=== PATIENT | male | born 1960 | race Hispanic/Latino ===

== ENCOUNTER 2018-03-09 18:05 | Emergency (ER) | payer OTHER, MEDICARE ==
[~2018-03-09] VITALS: Ht 170.2 cm; Wt 95.3 kg
[~2018-03-09 18:05] MED LIST: FUROSEMIDE20 MG PO; GLUCOPHAGE; METFORMIN HCL1000 MG PO; MINOCYCLINE HC100 MG PO; RAMIPRIL10 MG PO; Z.0.ACTOS15 MG; Z.0.LEVEMIR100 UNIT/ SQ; Z.0.NOVOLOG100 UNIT/ SQ; Z.0.PLAVIX75 MG PO; Z.0.RAMIPRIL10 MG PO; Z.0.ULTRAM 50MG50 MG PO; [UNRECOGNIZED DRUG - OTHER] PO
--- NOTE | 2018-03-09 19:04 | Diagnostic Imaging Report ---
EXAM: KNEE RIGHT THREE VIEWS DATE: 03/09/2018 6:26 PM INDICATION: ^SWELLING ^[id number] ^[id number] swelling COMPARISON: None FINDINGS: BKA changes present. Mild osteophytosis noted. There is no joint effusion. Vascular calcifications present. No ulceration or gas overlying distal soft tissues. IMPRESSION: No definite acute finding. Signed by: Dr. Ryan Arthur MD on 03/09/2018 7:01 PM
[2018-04-15] MEDS ORDERED: IRBESARTAN150 MG PO (10:40)
[2018-04-15] MEDS ORDERED: ATORVASTATIN CA10 MG PO (10:42)
[2018-04-15] MEDS ORDERED: CLOPIDOGREL75 MG PO (10:42)
[2018-04-15] MEDS ORDERED: FARXIGA PO (10:43)
[2018-04-15] MEDS ORDERED: METOPROLOL SUCC25 MG PO (10:44)
[2018-04-15] MEDS ORDERED: XARELTO20 MG PO (10:44)
[2018-04-15] MEDS ORDERED: TRESIBA SC (10:48)
[2018-04-15] MEDS ORDERED: AMLODIPINE BESY10 MG PO (10:49)
== END 2018-03-09 19:42 | disposition home or self-care (01) ==
LOC: ER 18:05
DX: M25.561 Pain in right knee (principal); L03.115 Cellulitis of right lower limb; I10 Essential (primary) hypertension; E11.9 Type 2 diabetes mellitus without complications; I25.10 Atherosclerotic heart disease of native coronary artery without angina pectoris; Z89.511 Acquired absence of right leg below knee
CPT/HCPCS: 99283

== ENCOUNTER 2021-03-30 10:29 | Inpatient (IN) | payer MEDICARE, OTHER ==
[~2021-03-30] VITALS: Ht 170.2 cm; Wt 131.5 kg
[~2021-03-30 10:29] MED LIST changes: +AMLODIPINE BESY10 MG PO; +ATORVASTATIN CA10 MG PO; +CLOPIDOGREL75 MG PO; +FARXIGA PO; +IRBESARTAN150 MG PO; +METOPROLOL SUCC25 MG PO; +TRESIBA SC; +XARELTO20 MG PO
[2021-03-30] MEDS ORDERED: Vancomycin IV 1 GM in SODIUM CHLORIDE 0.9% 250ML 250 ML IV ONE (11:00)
[2021-03-30] MEDS ORDERED: CEFEPIME 2 GM in SODIUM CHLORIDE 0.9% 100 ML IV ONE (11:00)
[2021-03-30] MEDS ORDERED: SODIUM CHLORIDE 0.9% 500ML 500 ML IV ONE (11:00)
[2021-03-30 11:03] LABS: BASOPHILS # (AUTO) 0.1 (0.0-0.1); BASOPHILS % 0.3 % (0.0-1.0); EOSINOPHILS # (AUTO) 0.1 (0.0-0.4); EOSINOPHILS % 0.7 % (0.0-6.0); HEMATOCRIT 43.7 % (38.2-49.6); HEMOGLOBIN 14.5 g/dL (14.0-18.0); LYMPHOCYTES # (AUTO) 1.2 (1.0-3.2); LYMPHOCYTES % 7.1 % (18.0-39.1); MEAN CORPUSCULAR HEMOGLOBIN 30.2 pg (28-32); MEAN CORPUSCULAR HGB CONC 33.2 g/dL (31-35); MONOCYTES # (AUTO) 1.3 (0.2-0.8); MONOCYTES % 7.6 % (4.4-11.3); NEUTROPHILS # (AUTO) 14.6 (2.1-6.9); NEUTROPHILS % 83.8 % (38.7-80.0); PLATELET COUNT 219 x10e3/uL (140-360); RED CELL DISTRIBUTION WIDTH 13.3 % (11.7-14.4)
[2021-03-30 11:09] LABS: INR 1.01; PROTHROMBIN TIME 14.1 seconds (11.9-14.5)
[2021-03-30 11:10] LABS: PARTIAL THROMBOPLASTIN TIME 33.6 seconds (23.8-35.5)
[2021-03-30 11:17] LABS: ALBUMIN 3.3 g/dL (3.5-5.0); ALBUMIN/GLOBULIN RATIO 0.7 (0.8-2.0); ANION GAP 14.1 mmol/L (8-16); CALCIUM 9.3 mg/dL (8.4-10.2); CREATININE, SERUM 1.25 mg/dL (0.72-1.25); MAGNESIUM 1.5 MG/DL (1.3-2.1); POTASSIUM 4.1 mmol/L (3.5-5.1)
[2021-03-30 11:23] LABS: CREATINE KINASE MB 0.9 ng/mL (0-5.0)
[2021-03-30 11:26] LABS: B-TYPE NATRIURETIC PEPTIDE2 26.5 pg/mL (0-100)
[2021-03-30 12:39] LABS: CLARITY,URINE CLEAR (CLEAR); COLOR,URINE YELLOW (YELLOW); KETONES,URINE NEGATIVE (NEGATIVE); LEUKOCYTE ESTERASE ,URINE NEGATIVE (NEGATIVE); NITRITE,URINE NEGATIVE (NEGATIVE); PROTEIN,URINE DIPSTICK 2+ (NEGATIVE); URINE UROBILINOGEN 0.2 mg/dL (0.2 - 1)
[2021-03-30 12:48] LABS: BACTERIA,URINE FEW /HPF; EPITHELIAL CELLS,URINE FEW /LPF; RBC,URINE 0-5 /HPF (0-5); WBC,URINE (MAN) 0-5 /HPF (0-5)
[2021-03-30] MEDS ORDERED: ONDANSETRON HCL INJ 2MG/ML 2ML 2 MG/ML VIAL IV PRN (14:00)
[2021-03-30] MEDS ORDERED: Morphine 2mg Syringe 2 MG/ML SYR IV PRN (14:00)
[2021-03-30] MEDS ORDERED: ACETAMINOPHEN 325 MG TAB PO PRN (14:30)
[2021-03-30] MEDS: SODIUM CHLORIDE 0.9% 1000ML 1,000 ML IV SCH (14:36)
[2021-03-30 15:56] VITALS: BP 115/63
[2021-03-30 15:57] VITALS: BP 115/63
[2021-03-30 16:07] VITALS: BP 115/63
[2021-03-30] MEDS ORDERED: OZEMPIC0.25 MG/0. SC (16:23)
[2021-03-30 16:35] VITALS: BP 115/63
[2021-03-30] MEDS ORDERED: DEXTROSE 50% SYRINGE 50 ML IV PRN (16:45)
[2021-03-30] MEDS: INSULIN REGULAR, HUMAN 100 UNIT/1 ML SQ SCH ×2 (17:00→20:28)
[2021-03-30] MEDS ORDERED: MAGNESIUM SULFATE 2GM/50ML 50 ML IV ONE (17:00)
[2021-03-30] MEDS ORDERED: HYDRALAZINE HCL 20 MG/ML VIAL IV PRN (18:15)
[2021-03-30] MEDS ORDERED: TEMAZEPAM 7.5 MG CAP PO PRN (18:15)
[2021-03-30] MEDS ORDERED: POLYETHYLENE GLYCOL 3350 17 GM PACK PO PRN (18:15)
[2021-03-30] MEDS ORDERED: FAMOTIDINE 20 MG/2 ML VIAL IV SCH (18:45)
[2021-03-30] MEDS ORDERED: TEMAZEPAM 15 MG CAP PO PRN (18:45)
[2021-03-30] MEDS: Vancomycin IV 500 MG in SODIUM CHLORIDE 0.9% 100 ML IV SCH (19:58)
[2021-03-30 20:00] VITALS: BP_SYST 115; BP_SYST 146; BP_DIAS 63; BP_DIAS 65
[2021-03-30] MEDS: ATORVASTATIN 10 MG TAB PO SCH (20:09)
[2021-03-30] MEDS: INSULIN GLARGINE 100 UNITS/ML VIAL SQ SCH (20:28)
[2021-03-30] MEDS: CEFEPIME 1 GM in SODIUM CHLORIDE 0.9% 50ML 50 ML IV SCH (22:04)
[2021-03-31] VITALS: BP 135/76
[2021-03-31] MEDS: SODIUM CHLORIDE 0.9% 1000ML 1,000 ML IV SCH (04:48)
[2021-03-31 07:20] LABS: BASOPHILS # (AUTO) 0.1 (0.0-0.1); BASOPHILS % 0.3 % (0.0-1.0); EOSINOPHILS # (AUTO) 0.1 (0.0-0.4); EOSINOPHILS % 0.7 % (0.0-6.0); HEMATOCRIT 36.8 % (38.2-49.6); HEMOGLOBIN 12.5 g/dL (14.0-18.0); LYMPHOCYTES # (AUTO) 1.3 (1.0-3.2); MEAN CORPUSCULAR HEMOGLOBIN 30.3 pg (28-32); MEAN CORPUSCULAR VOLUME 89.1 fL (81-99); MONOCYTES # (AUTO) 1.6 (0.2-0.8); NEUTROPHILS # (AUTO) 14.8 (2.1-6.9); NEUTROPHILS % 82.1 % (38.7-80.0); PLATELET COUNT 192 x10e3/uL (140-360); RED BLOOD COUNT 4.13 x10e6/uL (4.3-5.7); RED CELL DISTRIBUTION WIDTH 13.2 % (11.7-14.4)
[2021-03-31] MEDS: INSULIN REGULAR, HUMAN 100 UNIT/1 ML SQ SCH ×4 (07:30→21:26)
[2021-03-31 07:41] LABS: ALBUMIN 2.6 g/dL (3.5-5.0); ALBUMIN/GLOBULIN RATIO 0.6 (0.8-2.0); ANION GAP 13.7 mmol/L (8-16); CALCIUM 8.3 mg/dL (8.4-10.2); CHOL/HDL RATIO 3.6 (3.9-4.7); CREATININE, SERUM 0.98 mg/dL (0.72-1.25); MAGNESIUM 1.9 MG/DL (1.3-2.1); PHOSPHORUS 2.3 MG/DL (2.3-4.7); POTASSIUM 3.7 mmol/L (3.5-5.1)
[2021-03-31] MEDS: Vancomycin IV 500 MG in SODIUM CHLORIDE 0.9% 100 ML IV SCH (08:00)
[2021-03-31 08:04] LABS: THYROID STIMULATING HORMONE 1.659 uIU/mL (0.350-4.940)
[2021-03-31 08:12] VITALS: BP 160/79
[2021-03-31] MEDS: FAMOTIDINE 20 MG TAB PO SCH ×2 (08:30→17:03)
[2021-03-31] MEDS ORDERED: NON-FORMULARY MEDICATION ([Farxiga] 10 MG) PO SCH (09:00)
[2021-03-31] MEDS: CEFEPIME 1 GM in SODIUM CHLORIDE 0.9% 50ML 50 ML IV SCH ×2 (09:00→21:24)
[2021-03-31] MEDS ORDERED: FUROSEMIDE 40 MG TAB PO SCH (09:00)
[2021-03-31] MEDS: IRBESARTAN 150 MG TAB PO SCH (09:41)
[2021-03-31] MEDS: DOCUSATE SODIUM 100 MG CAP PO SCH ×2 (09:42→17:03)
[2021-03-31] MEDS: FOLIC ACID/CYANOCOB/PYRIDOXINE TAB PO SCH (09:43)
[2021-03-31] MEDS: AMLODIPINE BESYLATE 10 MG TAB PO SCH (09:43)
[2021-03-31] MEDS: OYST-CAL-D 500MG TABLET PO SCH (09:44)
[2021-03-31] MEDS: ZINC SULFATE 220 MG CAP PO SCH (09:45)
[2021-03-31] MEDS: ASCORBIC ACID 500 MG TAB PO SCH (09:45)
[2021-03-31] MEDS: METOPROLOL SUCCINATE 50 MG TAB XL PO SCH (09:45)
[2021-03-31] MEDS: Vancomycin IV 1.5 GM in SODIUM CHLORIDE 0.9% 250ML 300 ML IV SCH (17:41)
[2021-03-31 20:00] VITALS: BP 104/70
[2021-03-31] MEDS ORDERED: SODIUM CHLORIDE 0.9% 250ML 250 ML ONE (21:23)
[2021-03-31] MEDS: ATORVASTATIN 10 MG TAB PO SCH (21:24)
[2021-03-31] MEDS: INSULIN GLARGINE 100 UNITS/ML VIAL SQ SCH (21:26)
[2021-03-31 21:47] VITALS: BP 104/70
[2021-03-31] MEDS: ACETAMINOPHEN 325 MG TAB PO PRN (22:11)
[2021-04-01] VITALS (8 sets, daily range): BP systolic 106–128; BP diastolic 43–69
[2021-04-01 05:07] LABS: BASOPHILS # (AUTO) 0.1 (0.0-0.1); BASOPHILS % 0.3 % (0.0-1.0); EOSINOPHILS # (AUTO) 0.3 (0.0-0.4); EOSINOPHILS % 1.7 % (0.0-6.0); HEMATOCRIT 34.9 % (38.2-49.6); HEMOGLOBIN 11.9 g/dL (14.0-18.0); LYMPHOCYTES # (AUTO) 1.4 (1.0-3.2); LYMPHOCYTES % 7.7 % (18.0-39.1); MEAN CORPUSCULAR HEMOGLOBIN 30.2 pg (28-32); MEAN CORPUSCULAR HGB CONC 34.1 g/dL (31-35); MEAN CORPUSCULAR VOLUME 88.6 fL (81-99); MONOCYTES # (AUTO) 1.8 (0.2-0.8); MONOCYTES % 9.7 % (4.4-11.3); NEUTROPHILS # (AUTO) 14.7 (2.1-6.9); NEUTROPHILS % 79.8 % (38.7-80.0); PLATELET COUNT 205 x10e3/uL (140-360); RED BLOOD COUNT 3.94 x10e6/uL (4.3-5.7); RED CELL DISTRIBUTION WIDTH 13.2 % (11.7-14.4)
[2021-04-01] MEDS: Vancomycin IV 1.5 GM in SODIUM CHLORIDE 0.9% 250ML 300 ML IV SCH (05:11)
[2021-04-01] MEDS: ACETAMINOPHEN 325 MG TAB PO PRN ×2 (05:12→20:20)
[2021-04-01 05:35] LABS: ANION GAP 14.2 mmol/L (8-16); CALCIUM 8.5 mg/dL (8.4-10.2); CREATININE, SERUM 1.27 mg/dL (0.72-1.25); POTASSIUM 3.2 mmol/L (3.5-5.1)
[2021-04-01] MEDS: FAMOTIDINE 20 MG TAB PO SCH ×2 (08:30→16:34)
[2021-04-01] MEDS: IRBESARTAN 150 MG TAB PO SCH (09:00)
[2021-04-01] MEDS: AMLODIPINE BESYLATE 10 MG TAB PO SCH (09:00)
[2021-04-01] MEDS: METOPROLOL SUCCINATE 50 MG TAB XL PO SCH (09:00)
[2021-04-01] MEDS: DOCUSATE SODIUM 100 MG CAP PO SCH ×2 (09:42→16:31)
[2021-04-01] MEDS: FOLIC ACID/CYANOCOB/PYRIDOXINE TAB PO SCH (09:43)
[2021-04-01] MEDS: OYST-CAL-D 500MG TABLET PO SCH (09:43)
[2021-04-01] MEDS: BACITRACIN ZINC 15 GM OINT TOP SCH (09:44)
[2021-04-01] MEDS: ZINC SULFATE 220 MG CAP PO SCH (09:44)
[2021-04-01] MEDS: ASCORBIC ACID 500 MG TAB PO SCH (09:44)
[2021-04-01] MEDS ORDERED: DEXTROSE 50% SYRINGE 50 ML IV PRN (09:45)
[2021-04-01] MEDS ORDERED: PIPERACILLIN/TAZOBACTAM 3.375 GM in SODIUM CHLORIDE 0.9% 50ML 50 ML IV SCH (10:20)
[2021-04-01] MEDS ORDERED: POTASSIUM CHLORIDE 10MEQ EA PO ONE (10:25)
[2021-04-01] MEDS ORDERED: ONDANSETRON HCL 4 MG ORAL DISINTEGRATING TAB PO PRN (10:45)
[2021-04-01] MEDS: INSULIN LISPRO 100 UNIT/1 ML 3ML VIAL SQ SCH ×5 (11:30→20:17)
[2021-04-01] MEDS: ENOXAPARIN SOD INJ 40 MG/0.4 ML SYR SC SCH (16:31)
[2021-04-01] MEDS: ATORVASTATIN 10 MG TAB PO SCH (20:16)
[2021-04-01] MEDS: INSULIN GLARGINE 100 UNITS/ML VIAL SQ SCH (20:17)
[2021-04-02] VITALS (8 sets, daily range): BP systolic 107–140; BP diastolic 42–64
[2021-04-02] MEDS: ACETAMINOPHEN 325 MG TAB PO PRN (04:59)
[2021-04-02 05:36] LABS: BASOPHILS % 0.2 % (0.0-1.0); EOSINOPHILS # (AUTO) 0.5 (0.0-0.4); EOSINOPHILS % 2.9 % (0.0-6.0); HEMATOCRIT 35.9 % (38.2-49.6); HEMOGLOBIN 11.6 g/dL (14.0-18.0); LYMPHOCYTES # (AUTO) 1.5 (1.0-3.2); LYMPHOCYTES % 8.9 % (18.0-39.1); MEAN CORPUSCULAR HEMOGLOBIN 29.3 pg (28-32); MEAN CORPUSCULAR HGB CONC 32.3 g/dL (31-35); MEAN CORPUSCULAR VOLUME 90.7 fL (81-99); MONOCYTES # (AUTO) 1.3 (0.2-0.8); MONOCYTES % 7.6 % (4.4-11.3); NEUTROPHILS # (AUTO) 13.6 (2.1-6.9); NEUTROPHILS % 79.8 % (38.7-80.0); PLATELET COUNT 225 x10e3/uL (140-360); RED BLOOD COUNT 3.96 x10e6/uL (4.3-5.7); RED CELL DISTRIBUTION WIDTH 13.2 % (11.7-14.4)
[2021-04-02 05:56] LABS: ANION GAP 13.3 mmol/L (8-16); CALCIUM 8.2 mg/dL (8.4-10.2); CREATININE, SERUM 1.15 mg/dL (0.72-1.25); POTASSIUM 3.3 mmol/L (3.5-5.1)
[2021-04-02] MEDS: INSULIN LISPRO 100 UNIT/1 ML 3ML VIAL SQ SCH ×7 (07:30→20:26)
[2021-04-02] MEDS: FAMOTIDINE 20 MG TAB PO SCH ×2 (08:00→16:30)
[2021-04-02] MEDS: CEFTRIAXONE 2 GM in SODIUM CHLORIDE 0.9% 100 ML IV SCH (09:00)
[2021-04-02] MEDS: ZINC SULFATE 220 MG CAP PO SCH (09:01)
[2021-04-02] MEDS: BACITRACIN ZINC 15 GM OINT TOP SCH (09:01)
[2021-04-02] MEDS: IRBESARTAN 150 MG TAB PO SCH (09:01)
[2021-04-02] MEDS: FOLIC ACID/CYANOCOB/PYRIDOXINE TAB PO SCH (09:01)
[2021-04-02] MEDS: METOPROLOL SUCCINATE 50 MG TAB XL PO SCH (09:01)
[2021-04-02] MEDS: AMLODIPINE BESYLATE 10 MG TAB PO SCH (09:01)
[2021-04-02] MEDS: OYST-CAL-D 500MG TABLET PO SCH (09:01)
[2021-04-02] MEDS: DOCUSATE SODIUM 100 MG CAP PO SCH ×2 (09:01→17:27)
[2021-04-02] MEDS: ASCORBIC ACID 500 MG TAB PO SCH (09:01)
[2021-04-02] MEDS: ENOXAPARIN SOD INJ 40 MG/0.4 ML SYR SC SCH (17:27)
[2021-04-02] MEDS: ATORVASTATIN 10 MG TAB PO SCH (20:26)
[2021-04-02] MEDS: INSULIN GLARGINE 100 UNITS/ML VIAL SQ SCH (20:27)
[2021-04-03] VITALS (7 sets, daily range): BP systolic 115–137; BP diastolic 52–69
[2021-04-03] MEDS: INSULIN LISPRO 100 UNIT/1 ML 3ML VIAL SQ SCH ×7 (08:00→21:00)
[2021-04-03] MEDS: FAMOTIDINE 20 MG TAB PO SCH ×2 (08:00→16:30)
[2021-04-03] MEDS: AMLODIPINE BESYLATE 10 MG TAB PO SCH (09:03)
[2021-04-03] MEDS: CEFTRIAXONE 2 GM in SODIUM CHLORIDE 0.9% 100 ML IV SCH (09:03)
[2021-04-03] MEDS: IRBESARTAN 150 MG TAB PO SCH (09:03)
[2021-04-03] MEDS: FOLIC ACID/CYANOCOB/PYRIDOXINE TAB PO SCH (09:03)
[2021-04-03] MEDS: DOCUSATE SODIUM 100 MG CAP PO SCH ×2 (09:03→17:35)
[2021-04-03] MEDS: OYST-CAL-D 500MG TABLET PO SCH (09:03)
[2021-04-03] MEDS: ASCORBIC ACID 500 MG TAB PO SCH (09:04)
[2021-04-03] MEDS: ZINC SULFATE 220 MG CAP PO SCH (09:04)
[2021-04-03] MEDS: METOPROLOL SUCCINATE 50 MG TAB XL PO SCH (09:04)
[2021-04-03] MEDS: BACITRACIN ZINC 15 GM OINT TOP SCH (09:05)
[2021-04-03] MEDS: ENOXAPARIN SOD INJ 40 MG/0.4 ML SYR SC SCH (16:45)
[2021-04-03] MEDS: ATORVASTATIN 10 MG TAB PO SCH (20:16)
[2021-04-03] MEDS: ACETAMINOPHEN 325 MG TAB PO PRN (21:00)
[2021-04-03] MEDS: INSULIN GLARGINE 100 UNITS/ML VIAL SQ SCH (21:00)
[2021-04-04] VITALS (10 sets, daily range): BP systolic 112–143; BP diastolic 47–87
[2021-04-04] MEDS: FAMOTIDINE 20 MG TAB PO SCH ×2 (07:30→17:08)
[2021-04-04] MEDS: INSULIN LISPRO 100 UNIT/1 ML 3ML VIAL SQ SCH ×7 (07:30→21:37)
[2021-04-04] MEDS: BACITRACIN ZINC 15 GM OINT TOP SCH (09:00)
[2021-04-04] MEDS ORDERED: HEPARIN SOD (PORCINE) 1000 UNIT/ML 30ML ONE (09:01)
[2021-04-04] MEDS ORDERED: LIDOCAINE HCL 2% LOCAL 20 ML VIAL ONE (09:02)
[2021-04-04] MEDS ORDERED: HEPARIN SOD/SOD CHLORIDE 2,000 ML ONE (09:02)
[2021-04-04] MEDS ORDERED: MIDAZOLAM HCL 2 MG/2 ML VIAL ONE ×2 (09:02→10:19)
[2021-04-04] MEDS ORDERED: FENTANYL CITRATE/PF 100MCG/2 ML INJ ONE (09:02)
[2021-04-04] MEDS ORDERED: IOPAMIDOL 300MG/ML 100 ML INFUS..BTL IV ONE (09:03)
[2021-04-04] MEDS ORDERED: SODIUM CHLORIDE 0.9% 1000ML 1,000 ML ONE (09:03)
[2021-04-04] MEDS ORDERED: NITROGLYCERIN/D5W 200 MCG/ML 250 ML ONE (09:03)
[2021-04-04] MEDS ORDERED: CLOPIDOGREL BISULFATE 75 MG TAB ONE (10:43)
[2021-04-04] MEDS ORDERED: ASPIRIN 325 MG TAB ONE (10:44)
[2021-04-04] MEDS: ASCORBIC ACID 500 MG TAB PO SCH (12:49)
[2021-04-04] MEDS: DOCUSATE SODIUM 100 MG CAP PO SCH ×2 (12:49→17:08)
[2021-04-04] MEDS: ZINC SULFATE 220 MG CAP PO SCH (12:49)
[2021-04-04] MEDS: IRBESARTAN 150 MG TAB PO SCH (12:49)
[2021-04-04] MEDS: METOPROLOL SUCCINATE 50 MG TAB XL PO SCH (12:49)
[2021-04-04] MEDS: CEFTRIAXONE 2 GM in SODIUM CHLORIDE 0.9% 100 ML IV SCH (12:49)
[2021-04-04] MEDS: OYST-CAL-D 500MG TABLET PO SCH (12:49)
[2021-04-04] MEDS: AMLODIPINE BESYLATE 10 MG TAB PO SCH (12:49)
[2021-04-04] MEDS: FOLIC ACID/CYANOCOB/PYRIDOXINE TAB PO SCH (12:49)
[2021-04-04] MEDS: ENOXAPARIN SOD INJ 40 MG/0.4 ML SYR SC SCH (17:08)
[2021-04-04] MEDS: INSULIN GLARGINE 100 UNITS/ML VIAL SQ SCH (21:38)
[2021-04-04] MEDS: ATORVASTATIN 10 MG TAB PO SCH (21:39)
[2021-04-05 04:00] VITALS: BP 131/57
[2021-04-05] MEDS: FAMOTIDINE 20 MG TAB PO SCH ×2 (07:30→17:30)
[2021-04-05] MEDS: INSULIN LISPRO 100 UNIT/1 ML 3ML VIAL SQ SCH ×7 (07:30→20:57)
[2021-04-05 08:15] VITALS: BP 136/73
[2021-04-05 08:23] LABS: BASOPHILS # (AUTO) 0.1 (0.0-0.1); BASOPHILS % 0.5 % (0.0-1.0); EOSINOPHILS # (AUTO) 0.6 (0.0-0.4); EOSINOPHILS % 4.5 % (0.0-6.0); HEMOGLOBIN 11.9 g/dL (14.0-18.0); LYMPHOCYTES # (AUTO) 1.5 (1.0-3.2); LYMPHOCYTES % 11.4 % (18.0-39.1); MEAN CORPUSCULAR HEMOGLOBIN 29.4 pg (28-32); MEAN CORPUSCULAR HGB CONC 32.2 g/dL (31-35); MEAN CORPUSCULAR VOLUME 91.4 fL (81-99); MONOCYTES % 7.7 % (4.4-11.3); NEUTROPHILS # (AUTO) 9.9 (2.1-6.9); NEUTROPHILS % 74.5 % (38.7-80.0); PLATELET COUNT 290 x10e3/uL (140-360); RED BLOOD COUNT 4.05 x10e6/uL (4.3-5.7); RED CELL DISTRIBUTION WIDTH 13.2 % (11.7-14.4)
[2021-04-05 08:41] VITALS: BP 136/73
[2021-04-05] MEDS: IRBESARTAN 150 MG TAB PO SCH (09:09)
[2021-04-05] MEDS: ASPIRIN 81 MG CHEW TAB PO SCH (09:09)
[2021-04-05] MEDS: CEFTRIAXONE 2 GM in SODIUM CHLORIDE 0.9% 100 ML IV SCH (09:09)
[2021-04-05] MEDS: OYST-CAL-D 500MG TABLET PO SCH (09:10)
[2021-04-05] MEDS: AMLODIPINE BESYLATE 10 MG TAB PO SCH (09:10)
[2021-04-05] MEDS: DOCUSATE SODIUM 100 MG CAP PO SCH ×2 (09:10→17:37)
[2021-04-05] MEDS: FOLIC ACID/CYANOCOB/PYRIDOXINE TAB PO SCH (09:10)
[2021-04-05] MEDS: CLOPIDOGREL BISULFATE 75 MG TAB PO SCH (09:11)
[2021-04-05] MEDS: METOPROLOL SUCCINATE 50 MG TAB XL PO SCH (09:11)
[2021-04-05] MEDS: ASCORBIC ACID 500 MG TAB PO SCH (09:12)
[2021-04-05] MEDS: ZINC SULFATE 220 MG CAP PO SCH (09:12)
[2021-04-05] MEDS: BACITRACIN ZINC 15 GM OINT TOP SCH (09:12)
[2021-04-05 12:31] VITALS: BP 113/71
[2021-04-05 16:30] VITALS: BP 127/53
[2021-04-05] MEDS: ENOXAPARIN SOD INJ 40 MG/0.4 ML SYR SC SCH (17:37)
[2021-04-05 20:00] VITALS: BP 139/63
[2021-04-05] MEDS: INSULIN GLARGINE 100 UNITS/ML VIAL SQ SCH (20:56)
[2021-04-05] MEDS: ATORVASTATIN 10 MG TAB PO SCH (20:57)
[2021-04-06] VITALS: BP 130/70
[2021-04-06 04:00] VITALS: BP 145/63
[2021-04-06] MEDS: INSULIN LISPRO 100 UNIT/1 ML 3ML VIAL SQ SCH ×7 (07:30→21:44)
[2021-04-06 07:37] LABS: BASOPHILS # (AUTO) 0.1 (0.0-0.1); BASOPHILS % 0.5 % (0.0-1.0); EOSINOPHILS # (AUTO) 0.5 (0.0-0.4); EOSINOPHILS % 3.7 % (0.0-6.0); HEMATOCRIT 34.2 % (38.2-49.6); HEMOGLOBIN 11.1 g/dL (14.0-18.0); LYMPHOCYTES # (AUTO) 1.5 (1.0-3.2); LYMPHOCYTES % 12.1 % (18.0-39.1); MEAN CORPUSCULAR HEMOGLOBIN 29.6 pg (28-32); MEAN CORPUSCULAR HGB CONC 32.5 g/dL (31-35); MEAN CORPUSCULAR VOLUME 91.2 fL (81-99); MONOCYTES # (AUTO) 0.9 (0.2-0.8); MONOCYTES % 7.3 % (4.4-11.3); NEUTROPHILS # (AUTO) 9.4 (2.1-6.9); PLATELET COUNT 287 x10e3/uL (140-360); RED BLOOD COUNT 3.75 x10e6/uL (4.3-5.7); RED CELL DISTRIBUTION WIDTH 13.2 % (11.7-14.4)
[2021-04-06 07:56] LABS: ANION GAP 13.7 mmol/L (8-16); CALCIUM 8.9 mg/dL (8.4-10.2); CREATININE, SERUM 0.73 mg/dL (0.72-1.25); POTASSIUM 3.7 mmol/L (3.5-5.1)
[2021-04-06 08:00] VITALS: BP 139/68
[2021-04-06] MEDS: FAMOTIDINE 20 MG TAB PO SCH ×2 (08:30→17:09)
[2021-04-06] MEDS: ASPIRIN 81 MG CHEW TAB PO SCH (08:34)
[2021-04-06] MEDS: CEFTRIAXONE 2 GM in SODIUM CHLORIDE 0.9% 100 ML IV SCH (08:34)
[2021-04-06] MEDS: OYST-CAL-D 500MG TABLET PO SCH (08:36)
[2021-04-06] MEDS: IRBESARTAN 150 MG TAB PO SCH (08:36)
[2021-04-06] MEDS: ZINC SULFATE 220 MG CAP PO SCH (08:36)
[2021-04-06] MEDS: ASCORBIC ACID 500 MG TAB PO SCH (08:36)
[2021-04-06] MEDS: FOLIC ACID/CYANOCOB/PYRIDOXINE TAB PO SCH (08:36)
[2021-04-06] MEDS: BACITRACIN ZINC 15 GM OINT TOP SCH (08:36)
[2021-04-06] MEDS: METOPROLOL SUCCINATE 50 MG TAB XL PO SCH (08:36)
[2021-04-06] MEDS: CLOPIDOGREL BISULFATE 75 MG TAB PO SCH (08:36)
[2021-04-06] MEDS: DOCUSATE SODIUM 100 MG CAP PO SCH ×2 (08:36→17:09)
[2021-04-06] MEDS: AMLODIPINE BESYLATE 10 MG TAB PO SCH (08:36)
[2021-04-06 12:00] VITALS: BP 132/64
[2021-04-06 16:00] VITALS: BP 130/66
[2021-04-06] MEDS: ENOXAPARIN SOD INJ 40 MG/0.4 ML SYR SC SCH (17:09)
[2021-04-06 20:00] VITALS: BP 139/70
[2021-04-06] MEDS: ATORVASTATIN 10 MG TAB PO SCH (21:30)
[2021-04-06] MEDS: INSULIN GLARGINE 100 UNITS/ML VIAL SQ SCH (21:45)
[2021-04-07] VITALS: BP 133/61
[2021-04-07 04:00] VITALS: BP 133/58
[2021-04-07] MEDS: INSULIN LISPRO 100 UNIT/1 ML 3ML VIAL SQ SCH ×4 (07:30→11:30)
[2021-04-07] MEDS: FAMOTIDINE 20 MG TAB PO SCH (07:30)
[2021-04-07 08:07] VITALS: BP 149/66
[2021-04-07 08:10] VITALS: BP 149/66
[2021-04-07] MEDS: DOCUSATE SODIUM 100 MG CAP PO SCH (09:29)
[2021-04-07] MEDS: CEFTRIAXONE 2 GM in SODIUM CHLORIDE 0.9% 100 ML IV SCH (09:29)
[2021-04-07] MEDS: CLOPIDOGREL BISULFATE 75 MG TAB PO SCH (09:29)
[2021-04-07] MEDS: AMLODIPINE BESYLATE 10 MG TAB PO SCH (09:29)
[2021-04-07] MEDS: ASPIRIN 81 MG CHEW TAB PO SCH (09:29)
[2021-04-07] MEDS: FOLIC ACID/CYANOCOB/PYRIDOXINE TAB PO SCH (09:29)
[2021-04-07] MEDS: OYST-CAL-D 500MG TABLET PO SCH (09:29)
[2021-04-07] MEDS: IRBESARTAN 150 MG TAB PO SCH (09:29)
[2021-04-07] MEDS: ZINC SULFATE 220 MG CAP PO SCH (09:30)
[2021-04-07] MEDS: BACITRACIN ZINC 15 GM OINT TOP SCH (09:30)
[2021-04-07] MEDS: METOPROLOL SUCCINATE 50 MG TAB XL PO SCH (09:30)
[2021-04-07] MEDS: ASCORBIC ACID 500 MG TAB PO SCH (09:30)
[2021-04-07 11:34] VITALS: BP 130/69
== END 2021-04-07 16:00 | disposition home or self-care (01) | DRG 253 ==
LOC: ER 10:49 → MED/SURG3 15:26
PROVIDERS: ADMIT Internal Medicine; ATTEND Internal Medicine
PROC: 0JBR0ZZ Excision of Left Foot Subcutaneous Tissue and Fascia, Open Approach (ICD-10-PCS; 2021-04-01)
PROC: 047Q3ZZ Dilation of Left Anterior Tibial Artery, Percutaneous Approach (ICD-10-PCS; principal; 2021-04-04)
PROC: B41D1ZZ Fluoroscopy of Aorta and Bilateral Lower Extremity Arteries using Low Osmolar Contrast (ICD-10-PCS; 2021-04-04)
DX: E11.51 Type 2 diabetes mellitus with diabetic peripheral angiopathy without gangrene (principal); L03.116 Cellulitis of left lower limb; N17.9 Acute kidney failure, unspecified; E11.621 Type 2 diabetes mellitus with foot ulcer; L98.9 Disorder of the skin and subcutaneous tissue, unspecified; L97.529 Non-pressure chronic ulcer of other part of left foot with unspecified severity; Z79.899 Other long term (current) drug therapy; E78.5 Hyperlipidemia, unspecified; I25.10 Atherosclerotic heart disease of native coronary artery without angina pectoris; E83.42 Hypomagnesemia; E88.09 Other disorders of plasma-protein metabolism, not elsewhere classified; Z89.511 Acquired absence of right leg below knee; E11.42 Type 2 diabetes mellitus with diabetic polyneuropathy; Z20.822 Contact with and (suspected) exposure to COVID-19; I70.25 Atherosclerosis of native arteries of other extremities with ulceration; I87.2 Venous insufficiency (chronic) (peripheral)
CPT/HCPCS: 36247; 36415; 37228; 71045; 75625; 75716; 80048; 80053; 80061; 80202; 81001; 82550; 82553; 82948; 83036; 83605; 83735; 83880; 84100; 84443; 84484; 85025; 85610; 85730; 87040; 87071; 87075; 87205; 93005; 93925; 94799; 99152; 99153; 99251; 99284; C1725; C1769; C1887; J0692; J0696; J1644; J1650; J1815; J1817; J2001; J2250; J2543; J3010; J3370; J3475; J7030; J7040; J7050; Q9967; U0002

== ENCOUNTER 2021-04-21 12:12 | Inpatient (IN) | payer MEDICARE, OTHER ==
[~2021-04-21] VITALS: Ht 170.2 cm; Wt 104.3 kg
[~2021-04-21 12:12] MED LIST changes: +OZEMPIC0.25 MG/0. SC
[2021-04-21] MEDS ORDERED: ONDANSETRON HCL INJ 2MG/ML 2ML 2 MG/ML VIAL IV PRN (12:30)
[2021-04-21] MEDS ORDERED: HYDROMORPHONE 1MG/1ML INJ IV PRN (12:30)
[2021-04-21] MEDS ORDERED: BUPIVACAINE 0.25% 30ML SDV ONE (12:42)
[2021-04-21] MEDS ORDERED: DEXAMETHASONE SOD PHOS 10 MG/1 ML VIAL IV ONE (13:00)
[2021-04-21 13:06] LABS: BASOPHILS # (AUTO) 0.1 (0.0-0.1); BASOPHILS % 0.4 % (0.0-1.0); EOSINOPHILS # (AUTO) 0.5 (0.0-0.4); EOSINOPHILS % 4.8 % (0.0-6.0); HEMATOCRIT 36.7 % (38.2-49.6); HEMOGLOBIN 12.1 g/dL (14.0-18.0); LYMPHOCYTES # (AUTO) 1.5 (1.0-3.2); LYMPHOCYTES % 13.7 % (18.0-39.1); MEAN CORPUSCULAR HEMOGLOBIN 29.4 pg (28-32); MEAN CORPUSCULAR VOLUME 89.3 fL (81-99); MONOCYTES # (AUTO) 0.7 (0.2-0.8); MONOCYTES % 6.6 % (4.4-11.3); NEUTROPHILS # (AUTO) 8.2 (2.1-6.9); NEUTROPHILS % 73.8 % (38.7-80.0); PLATELET COUNT 271 x10e3/uL (140-360); RED BLOOD COUNT 4.11 x10e6/uL (4.3-5.7); RED CELL DISTRIBUTION WIDTH 13.6 % (11.7-14.4)
[2021-04-21 13:36] LABS: ALBUMIN 2.5 g/dL (3.5-5.0); ALBUMIN/GLOBULIN RATIO 0.5 (0.8-2.0); CALCIUM 8.6 mg/dL (8.4-10.2); CREATININE, SERUM 0.9 mg/dL (0.72-1.25)
[2021-04-21] MEDS ORDERED: METFORMIN HCL PO (14:09)
[2021-04-21] MEDS ORDERED: SODIUM CHLORIDE FLUSH 10 ML SYR INJ PRN (14:15)
[2021-04-21] MEDS: PIPERACILLIN/TAZOBACTAM 3.375 GM in SODIUM CHLORIDE 0.9% 50ML 50 ML IV SCH ×3 (16:00→22:00)
[2021-04-21] MEDS ORDERED: DEXTROSE 50% SYRINGE 50 ML IV PRN (17:15)
[2021-04-21 18:31] VITALS: BP 143/67
[2021-04-21 18:52] VITALS: BP 143/67
[2021-04-21] MEDS ORDERED: PNEUMOCOCCAL VACCINE POLYVALENT 23 MCG/0.5 ML VIAL IM SCH (18:53)
[2021-04-21 20:00] VITALS: BP 132/72
[2021-04-21] MEDS: INSULIN LISPRO 100 UNIT/1 ML 3ML VIAL SQ SCH (21:00)
[2021-04-21] MEDS ORDERED: CEFEPIME 1 GM in SODIUM CHLORIDE 0.9% 50ML 50 ML IV SCH (21:00)
[2021-04-21] MEDS ORDERED: Vancomycin IV 1 GM in SODIUM CHLORIDE 0.9% 250ML 250 ML IV SCH (22:00)
[2021-04-21] MEDS ORDERED: SODIUM CHLORIDE 0.9% 250ML 250 ML ONE (23:44)
[2021-04-22] VITALS (8 sets, daily range): BP systolic 137–160; BP diastolic 66–79
[2021-04-22 05:18] LABS: BASOPHILS % 0.2 % (0.0-1.0); HEMATOCRIT 36.8 % (38.2-49.6); HEMOGLOBIN 11.8 g/dL (14.0-18.0); LYMPHOCYTES # (AUTO) 0.9 (1.0-3.2); LYMPHOCYTES % 6.5 % (18.0-39.1); MEAN CORPUSCULAR HEMOGLOBIN 29.3 pg (28-32); MEAN CORPUSCULAR HGB CONC 32.1 g/dL (31-35); MEAN CORPUSCULAR VOLUME 91.3 fL (81-99); MONOCYTES # (AUTO) 0.3 (0.2-0.8); MONOCYTES % 1.9 % (4.4-11.3); NEUTROPHILS # (AUTO) 12.7 (2.1-6.9); NEUTROPHILS % 90.9 % (38.7-80.0); PLATELET COUNT 279 x10e3/uL (140-360); RED BLOOD COUNT 4.03 x10e6/uL (4.3-5.7); RED CELL DISTRIBUTION WIDTH 13.5 % (11.7-14.4)
[2021-04-22 05:48] LABS: ANION GAP 13.1 mmol/L (8-16); CALCIUM 9.4 mg/dL (8.4-10.2); CREATININE, SERUM 1.05 mg/dL (0.72-1.25); POTASSIUM 4.1 mmol/L (3.5-5.1)
[2021-04-22] MEDS: PIPERACILLIN/TAZOBACTAM 3.375 GM in SODIUM CHLORIDE 0.9% 50ML 50 ML IV SCH (06:21)
[2021-04-22] MEDS ORDERED: FAMOTIDINE 20 MG TAB PO ONE (09:00)
[2021-04-22] MEDS: INSULIN LISPRO 100 UNIT/1 ML 3ML VIAL SQ SCH ×4 (09:15→21:30)
[2021-04-22] MEDS: Vancomycin IV 1 GM in SODIUM CHLORIDE 0.9% 250ML 250 ML IV SCH ×3 (12:08)
[2021-04-22] MEDS ORDERED: ONDANSETRON HCL 4 MG ORAL DISINTEGRATING TAB PO PRN (17:45)
[2021-04-22] MEDS: ATORVASTATIN 10 MG TAB PO SCH (21:00)
[2021-04-23] VITALS (8 sets, daily range): BP systolic 121–161; BP diastolic 69–81
[2021-04-23 06:22] LABS: BASOPHILS # (AUTO) 0.1 (0.0-0.1); BASOPHILS % 0.6 % (0.0-1.0); EOSINOPHILS # (AUTO) 0.3 (0.0-0.4); EOSINOPHILS % 2.5 % (0.0-6.0); HEMOGLOBIN 11.2 g/dL (14.0-18.0); LYMPHOCYTES % 19.9 % (18.0-39.1); MEAN CORPUSCULAR HEMOGLOBIN 29.2 pg (28-32); MEAN CORPUSCULAR HGB CONC 32.9 g/dL (31-35); MEAN CORPUSCULAR VOLUME 88.8 fL (81-99); MONOCYTES # (AUTO) 0.7 (0.2-0.8); MONOCYTES % 7.2 % (4.4-11.3); NEUTROPHILS # (AUTO) 7.1 (2.1-6.9); NEUTROPHILS % 69.2 % (38.7-80.0); PLATELET COUNT 275 x10e3/uL (140-360); RED BLOOD COUNT 3.83 x10e6/uL (4.3-5.7); RED CELL DISTRIBUTION WIDTH 13.8 % (11.7-14.4)
[2021-04-23 06:54] LABS: ANION GAP 9.7 mmol/L (8-16); CALCIUM 9.1 mg/dL (8.4-10.2); CREATININE, SERUM 0.91 mg/dL (0.72-1.25); MAGNESIUM 1.6 MG/DL (1.3-2.1); PHOSPHORUS 2.6 MG/DL (2.3-4.7); POTASSIUM 3.7 mmol/L (3.5-5.1)
[2021-04-23] MEDS: INSULIN LISPRO 100 UNIT/1 ML 3ML VIAL SQ SCH ×4 (07:30→19:39)
[2021-04-23] MEDS: METOPROLOL SUCCINATE 50 MG TAB XL PO SCH (09:00)
[2021-04-23] MEDS: AMLODIPINE BESYLATE 10 MG TAB PO SCH (09:00)
[2021-04-23] MEDS: IRBESARTAN 150 MG TAB PO SCH (09:00)
[2021-04-23] MEDS: CLOPIDOGREL BISULFATE 75 MG TAB PO SCH (09:00)
[2021-04-23] MEDS: FUROSEMIDE 40 MG TAB PO SCH (09:00)
[2021-04-23] MEDS: ENOXAPARIN SODIUM INJ 100 MG/ML SYR SC SCH (15:00)
[2021-04-23] MEDS: DOCUSATE SODIUM 100 MG CAP PO SCH (18:14)
[2021-04-23] MEDS: ATORVASTATIN 10 MG TAB PO SCH (19:39)
[2021-04-24] VITALS (11 sets, daily range): BP systolic 110–132; BP diastolic 62–74
[2021-04-24] MEDS: ENOXAPARIN SODIUM INJ 100 MG/ML SYR SC SCH ×2 (02:48→15:00)
[2021-04-24] MEDS: INSULIN LISPRO 100 UNIT/1 ML 3ML VIAL SQ SCH ×4 (07:30→21:54)
[2021-04-24 08:20] LABS: BASOPHILS # (AUTO) 0.1 (0.0-0.1); BASOPHILS % 0.9 % (0.0-1.0); EOSINOPHILS # (AUTO) 0.5 (0.0-0.4); HEMATOCRIT 36.8 % (38.2-49.6); HEMOGLOBIN 11.7 g/dL (14.0-18.0); LYMPHOCYTES # (AUTO) 1.9 (1.0-3.2); LYMPHOCYTES % 21.6 % (18.0-39.1); MEAN CORPUSCULAR HEMOGLOBIN 29.1 pg (28-32); MEAN CORPUSCULAR HGB CONC 31.8 g/dL (31-35); MEAN CORPUSCULAR VOLUME 91.5 fL (81-99); MONOCYTES # (AUTO) 0.7 (0.2-0.8); MONOCYTES % 7.4 % (4.4-11.3); NEUTROPHILS # (AUTO) 5.6 (2.1-6.9); NEUTROPHILS % 63.4 % (38.7-80.0); PLATELET COUNT 258 x10e3/uL (140-360); RED BLOOD COUNT 4.02 x10e6/uL (4.3-5.7); RED CELL DISTRIBUTION WIDTH 13.9 % (11.7-14.4)
[2021-04-24 08:51] LABS: ANION GAP 11.8 mmol/L (8-16); CALCIUM 9.3 mg/dL (8.4-10.2); CREATININE, SERUM 0.83 mg/dL (0.72-1.25); MAGNESIUM 1.6 MG/DL (1.3-2.1); POTASSIUM 3.8 mmol/L (3.5-5.1)
[2021-04-24] MEDS: CLOPIDOGREL BISULFATE 75 MG TAB PO SCH (09:00)
[2021-04-24] MEDS: METOPROLOL SUCCINATE 50 MG TAB XL PO SCH (09:00)
[2021-04-24] MEDS ORDERED: PNEUMOCOCCAL VACCINE POLYVALENT 23 MCG/0.5 ML VIAL IM SCH (09:00)
[2021-04-24] MEDS: AMLODIPINE BESYLATE 10 MG TAB PO SCH (09:00)
[2021-04-24] MEDS: FUROSEMIDE 40 MG TAB PO SCH (09:00)
[2021-04-24] MEDS: IRBESARTAN 150 MG TAB PO SCH (09:00)
[2021-04-24] MEDS: DOCUSATE SODIUM 100 MG CAP PO SCH ×2 (09:00→16:43)
[2021-04-24 09:05] LABS: PHOSPHORUS 2.9 MG/DL (2.3-4.7)
[2021-04-24] MEDS ORDERED: HEPARIN SOD/SOD CHLORIDE 2,000 ML ONE (09:26)
[2021-04-24] MEDS ORDERED: MIDAZOLAM HCL 2 MG/2 ML VIAL ONE (09:26)
[2021-04-24] MEDS ORDERED: FENTANYL CITRATE/PF 100MCG/2 ML INJ ONE (09:26)
[2021-04-24] MEDS ORDERED: LIDOCAINE HCL 2% LOCAL 20 ML VIAL ONE (09:26)
[2021-04-24] MEDS ORDERED: IOPAMIDOL 300MG/ML 100 ML INFUS..BTL IV ONE (09:27)
[2021-04-24] MEDS ORDERED: SODIUM CHLORIDE 0.9% 1000ML 1,000 ML ONE (09:27)
[2021-04-24] MEDS ORDERED: SODIUM CHLORIDE 0.9% 100 ML ONE (14:47)
[2021-04-24] MEDS: POLYETHYLENE GLYCOL 3350 17 GM PACK PO SCH (16:43)
[2021-04-24] MEDS: ATORVASTATIN 10 MG TAB PO SCH (21:52)
[2021-04-25] VITALS (9 sets, daily range): BP systolic 106–145; BP diastolic 61–73
[2021-04-25] MEDS: ENOXAPARIN SODIUM INJ 100 MG/ML SYR SC SCH ×2 (03:00→15:21)
[2021-04-25 04:52] LABS: BASOPHILS # (AUTO) 0.1 (0.0-0.1); BASOPHILS % 0.8 % (0.0-1.0); EOSINOPHILS # (AUTO) 0.5 (0.0-0.4); EOSINOPHILS % 5.8 % (0.0-6.0); HEMATOCRIT 39.3 % (38.2-49.6); HEMOGLOBIN 12.2 g/dL (14.0-18.0); LYMPHOCYTES # (AUTO) 1.8 (1.0-3.2); MEAN CORPUSCULAR HEMOGLOBIN 29.5 pg (28-32); MEAN CORPUSCULAR VOLUME 94.9 fL (81-99); MONOCYTES # (AUTO) 0.9 (0.2-0.8); MONOCYTES % 9.7 % (4.4-11.3); NEUTROPHILS # (AUTO) 5.6 (2.1-6.9); NEUTROPHILS % 62.9 % (38.7-80.0); PLATELET COUNT 226 x10e3/uL (140-360); RED BLOOD COUNT 4.14 x10e6/uL (4.3-5.7); RED CELL DISTRIBUTION WIDTH 13.9 % (11.7-14.4)
[2021-04-25 05:40] LABS: ANION GAP 11.6 mmol/L (8-16); CALCIUM 9.4 mg/dL (8.4-10.2); CREATININE, SERUM 0.89 mg/dL (0.72-1.25); MAGNESIUM 1.7 MG/DL (1.3-2.1); POTASSIUM 3.6 mmol/L (3.5-5.1)
[2021-04-25] MEDS: POLYETHYLENE GLYCOL 3350 17 GM PACK PO SCH ×2 (09:00→17:00)
[2021-04-25] MEDS: DOCUSATE SODIUM 100 MG CAP PO SCH ×2 (09:00→17:00)
[2021-04-25] MEDS: INSULIN LISPRO 100 UNIT/1 ML 3ML VIAL SQ SCH ×4 (10:00→21:00)
[2021-04-25] MEDS: IRBESARTAN 150 MG TAB PO SCH (10:00)
[2021-04-25] MEDS: AMLODIPINE BESYLATE 10 MG TAB PO SCH (10:01)
[2021-04-25] MEDS: METOPROLOL SUCCINATE 50 MG TAB XL PO SCH (10:01)
[2021-04-25] MEDS: CLOPIDOGREL BISULFATE 75 MG TAB PO SCH (10:01)
[2021-04-25] MEDS: FUROSEMIDE 40 MG TAB PO SCH (10:01)
[2021-04-25] MEDS: ATORVASTATIN 10 MG TAB PO SCH (21:17)
[2021-04-26] VITALS (8 sets, daily range): BP systolic 113–133; BP diastolic 56–73
[2021-04-26] MEDS: ENOXAPARIN SODIUM INJ 100 MG/ML SYR SC SCH (03:09)
[2021-04-26 04:57] LABS: BASOPHILS # (AUTO) 0.1 (0.0-0.1); BASOPHILS % 0.6 % (0.0-1.0); EOSINOPHILS # (AUTO) 0.8 (0.0-0.4); EOSINOPHILS % 7.8 % (0.0-6.0); HEMATOCRIT 35.6 % (38.2-49.6); HEMOGLOBIN 11.7 g/dL (14.0-18.0); LYMPHOCYTES # (AUTO) 2.1 (1.0-3.2); LYMPHOCYTES % 21.3 % (18.0-39.1); MEAN CORPUSCULAR HEMOGLOBIN 29.5 pg (28-32); MEAN CORPUSCULAR HGB CONC 32.9 g/dL (31-35); MEAN CORPUSCULAR VOLUME 89.7 fL (81-99); MONOCYTES # (AUTO) 0.9 (0.2-0.8); NEUTROPHILS # (AUTO) 5.9 (2.1-6.9); NEUTROPHILS % 60.5 % (38.7-80.0); PLATELET COUNT 228 x10e3/uL (140-360); RED BLOOD COUNT 3.97 x10e6/uL (4.3-5.7); RED CELL DISTRIBUTION WIDTH 13.9 % (11.7-14.4)
[2021-04-26 05:15] LABS: ALBUMIN 2.6 g/dL (3.5-5.0); ALBUMIN/GLOBULIN RATIO 0.6 (0.8-2.0); CALCIUM 12.2 mg/dL (8.4-10.2); CREATININE, SERUM 1.01 mg/dL (0.72-1.25)
[2021-04-26] MEDS: INSULIN LISPRO 100 UNIT/1 ML 3ML VIAL SQ SCH ×4 (07:30→21:05)
[2021-04-26] MEDS: FUROSEMIDE 40 MG TAB PO SCH (08:15)
[2021-04-26] MEDS: IRBESARTAN 150 MG TAB PO SCH (08:15)
[2021-04-26] MEDS: DOCUSATE SODIUM 100 MG CAP PO SCH ×2 (08:15→16:34)
[2021-04-26] MEDS: AMLODIPINE BESYLATE 10 MG TAB PO SCH (08:16)
[2021-04-26] MEDS: METOPROLOL SUCCINATE 50 MG TAB XL PO SCH (08:16)
[2021-04-26] MEDS: POLYETHYLENE GLYCOL 3350 17 GM PACK PO SCH ×2 (08:16→16:34)
[2021-04-26] MEDS: CLOPIDOGREL BISULFATE 75 MG TAB PO SCH (08:16)
[2021-04-26] MEDS: ATORVASTATIN 10 MG TAB PO SCH (20:58)
[2021-04-27] VITALS (7 sets, daily range): BP systolic 126–144; BP diastolic 64–78
[2021-04-27 05:55] LABS: BASOPHILS # (AUTO) 0.1 (0.0-0.1); BASOPHILS % 0.7 % (0.0-1.0); EOSINOPHILS # (AUTO) 0.8 (0.0-0.4); EOSINOPHILS % 8.6 % (0.0-6.0); HEMATOCRIT 33.5 % (38.2-49.6); LYMPHOCYTES # (AUTO) 1.9 (1.0-3.2); LYMPHOCYTES % 21.8 % (18.0-39.1); MEAN CORPUSCULAR HEMOGLOBIN 29.5 pg (28-32); MEAN CORPUSCULAR HGB CONC 32.8 g/dL (31-35); MEAN CORPUSCULAR VOLUME 89.8 fL (81-99); MONOCYTES # (AUTO) 0.8 (0.2-0.8); MONOCYTES % 9.5 % (4.4-11.3); NEUTROPHILS # (AUTO) 5.2 (2.1-6.9); NEUTROPHILS % 58.6 % (38.7-80.0); PLATELET COUNT 220 x10e3/uL (140-360); RED BLOOD COUNT 3.73 x10e6/uL (4.3-5.7); RED CELL DISTRIBUTION WIDTH 13.8 % (11.7-14.4)
[2021-04-27 06:28] LABS: ALBUMIN 2.7 g/dL (3.5-5.0); ALBUMIN/GLOBULIN RATIO 0.6 (0.8-2.0); ANION GAP 10.6 mmol/L (8-16); CALCIUM 8.9 mg/dL (8.4-10.2); CREATININE, SERUM 0.84 mg/dL (0.72-1.25); POTASSIUM 3.6 mmol/L (3.5-5.1)
[2021-04-27] MEDS: INSULIN LISPRO 100 UNIT/1 ML 3ML VIAL SQ SCH ×4 (07:30→21:00)
[2021-04-27] MEDS: DOCUSATE SODIUM 100 MG CAP PO SCH ×2 (07:48→17:00)
[2021-04-27] MEDS: POLYETHYLENE GLYCOL 3350 17 GM PACK PO SCH ×2 (07:48→17:00)
[2021-04-27] MEDS ORDERED: ENOXAPARIN SOD INJ 40 MG/0.4 ML SYR SC SCH (09:00)
[2021-04-27] MEDS: IRBESARTAN 150 MG TAB PO SCH (09:36)
[2021-04-27] MEDS: AMLODIPINE BESYLATE 10 MG TAB PO SCH (09:36)
[2021-04-27] MEDS: FUROSEMIDE 40 MG TAB PO SCH (09:36)
[2021-04-27] MEDS: METOPROLOL SUCCINATE 50 MG TAB XL PO SCH (09:37)
[2021-04-27] MEDS: ATORVASTATIN 10 MG TAB PO SCH (21:48)
[2021-04-27] MEDS ORDERED: CALCIUM CARBONATE 500 MG CHEWABLE TABS PO ONE (22:15)
[2021-04-27] MEDS ORDERED: FAMOTIDINE 20 MG TAB PO ONE (22:15)
[2021-04-28] VITALS (9 sets, daily range): BP systolic 130–152; BP diastolic 57–74
[2021-04-28 05:22] LABS: ANION GAP 11.6 mmol/L (8-16); CALCIUM 9.1 mg/dL (8.4-10.2); CREATININE, SERUM 0.8 mg/dL (0.72-1.25); POTASSIUM 3.6 mmol/L (3.5-5.1)
[2021-04-28 05:25] LABS: BASOPHILS # (AUTO) 0.1 (0.0-0.1); BASOPHILS % 0.7 % (0.0-1.0); EOSINOPHILS # (AUTO) 0.8 (0.0-0.4); EOSINOPHILS % 7.5 % (0.0-6.0); HEMATOCRIT 34.4 % (38.2-49.6); LYMPHOCYTES # (AUTO) 2.1 (1.0-3.2); LYMPHOCYTES % 19.9 % (18.0-39.1); MEAN CORPUSCULAR HEMOGLOBIN 29.3 pg (28-32); MEAN CORPUSCULAR VOLUME 91.7 fL (81-99); MONOCYTES % 9.2 % (4.4-11.3); NEUTROPHILS # (AUTO) 6.4 (2.1-6.9); NEUTROPHILS % 62.1 % (38.7-80.0); PLATELET COUNT 222 x10e3/uL (140-360); RED BLOOD COUNT 3.75 x10e6/uL (4.3-5.7); RED CELL DISTRIBUTION WIDTH 14.1 % (11.7-14.4)
[2021-04-28] MEDS: INSULIN LISPRO 100 UNIT/1 ML 3ML VIAL SQ SCH ×4 (07:30→21:24)
[2021-04-28] MEDS: POLYETHYLENE GLYCOL 3350 17 GM PACK PO SCH ×2 (09:00→16:10)
[2021-04-28] MEDS ORDERED: BUPIVACAINE LIPOSOME/PF 266 MG/20 ML IJ ONE (10:12)
[2021-04-28] MEDS ORDERED: BUPIVACAINE 0.25% 30ML SDV ONE (10:12)
[2021-04-28] MEDS ORDERED: ACETAMINOPHEN 1000 MG/100 ML 100 ML IV ONE (12:00)
[2021-04-28] MEDS ORDERED: POVIDONE IODINE 0.05% 0.05 % ML PO ONE (12:27)
[2021-04-28] MEDS ORDERED: PROPOFOL IV EMULSION 10 MG/ML 20 ML VIAL ONE (12:27)
[2021-04-28] MEDS ORDERED: DEXAMETHASONE SOD PHOS INJ 4 MG/ML SDV ONE (12:27)
[2021-04-28] MEDS ORDERED: SEVOFLURANE INHAL SOLN 250 ML PEN BTL ONE (12:27)
[2021-04-28] MEDS ORDERED: ONDANSETRON HCL INJ 2MG/ML 2ML 2 MG/ML VIAL ONE (12:27)
[2021-04-28] MEDS ORDERED: LIDOCAINE HCL 2% LOCAL INJ 5 ML SDV VIAL INJ ONE (12:27)
[2021-04-28] MEDS ORDERED: FENTANYL CITRATE/PF 100MCG/2 ML INJ ONE (12:45)
[2021-04-28] MEDS ORDERED: MIDAZOLAM HCL 2 MG/2 ML VIAL ONE (12:45)
[2021-04-28] MEDS ORDERED: NALOXONE HCL INJ 0.4 MG/ML AMP IV PRN (13:15)
[2021-04-28] MEDS ORDERED: HYDROCODONE/APAP 7.5MG-325MG 1 EA TAB PO PRN (13:15)
[2021-04-28] MEDS ORDERED: KETOROLAC TROMETHAMINE 30 MG/ML VIAL IV PRN (13:15)
[2021-04-28] MEDS: HYDROMORPHONE 0.2MG/ML-SOD CHL 30ML PCA SYRINGE IV PRN ×2 (13:21→21:45)
[2021-04-28] MEDS ORDERED: HYDROMORPHONE 1MG/1ML INJ ONE ×2 (13:31→13:44)
[2021-04-28] MEDS ORDERED: Morphine 4mg Syringe 4 MG/ML INJ ONE (13:58)
[2021-04-28] MEDS ORDERED: SODIUM CHLORIDE 0.9% 50ML 100 ML ONE (14:00)
[2021-04-28] MEDS: AMLODIPINE BESYLATE 10 MG TAB PO SCH (14:31)
[2021-04-28] MEDS: FUROSEMIDE 40 MG TAB PO SCH (14:31)
[2021-04-28] MEDS: DOCUSATE SODIUM 100 MG CAP PO SCH ×2 (14:31→16:09)
[2021-04-28] MEDS: IRBESARTAN 150 MG TAB PO SCH (14:31)
[2021-04-28] MEDS: METOPROLOL SUCCINATE 50 MG TAB XL PO SCH (14:31)
[2021-04-28] MEDS: SODIUM CHLORIDE 0.9% 1000ML 1,000 ML IV SCH (15:24)
[2021-04-28] MEDS: ATORVASTATIN 10 MG TAB PO SCH (21:21)
[2021-04-29] MEDS: SODIUM CHLORIDE 0.9% 1000ML 1,000 ML IV SCH ×2 (03:09→16:15)
[2021-04-29 04:32] VITALS: BP 152/66
[2021-04-29 06:08] LABS: BASOPHILS % 0.2 % (0.0-1.0); EOSINOPHILS % 0.2 % (0.0-6.0); LYMPHOCYTES # (AUTO) 1.1 (1.0-3.2); LYMPHOCYTES % 9.6 % (18.0-39.1); MEAN CORPUSCULAR HEMOGLOBIN 29.2 pg (28-32); MEAN CORPUSCULAR HGB CONC 31.3 g/dL (31-35); MEAN CORPUSCULAR VOLUME 93.3 fL (81-99); MONOCYTES # (AUTO) 0.8 (0.2-0.8); MONOCYTES % 7.3 % (4.4-11.3); NEUTROPHILS # (AUTO) 9.3 (2.1-6.9); NEUTROPHILS % 82.2 % (38.7-80.0); PLATELET COUNT 238 x10e3/uL (140-360); RED BLOOD COUNT 3.43 x10e6/uL (4.3-5.7); RED CELL DISTRIBUTION WIDTH 14.2 % (11.7-14.4)
[2021-04-29 06:51] LABS: ANION GAP 7.2 mmol/L (8-16); CALCIUM 8.5 mg/dL (8.4-10.2); CREATININE, SERUM 0.91 mg/dL (0.72-1.25); POTASSIUM 4.2 mmol/L (3.5-5.1)
[2021-04-29 07:11] LABS: MAGNESIUM 1.7 MG/DL (1.3-2.1); PHOSPHORUS 2.8 MG/DL (2.3-4.7)
[2021-04-29 07:41] VITALS: BP 117/55
[2021-04-29 08:11] VITALS: BP 117/55
[2021-04-29] MEDS: DOCUSATE SODIUM 100 MG CAP PO SCH ×2 (08:51→16:15)
[2021-04-29] MEDS: IRBESARTAN 150 MG TAB PO SCH (08:51)
[2021-04-29] MEDS: POLYETHYLENE GLYCOL 3350 17 GM PACK PO SCH ×2 (08:52→16:15)
[2021-04-29] MEDS: METOPROLOL SUCCINATE 50 MG TAB XL PO SCH (08:52)
[2021-04-29] MEDS: FUROSEMIDE 40 MG TAB PO SCH (08:52)
[2021-04-29] MEDS: AMLODIPINE BESYLATE 10 MG TAB PO SCH (08:52)
[2021-04-29] MEDS: INSULIN LISPRO 100 UNIT/1 ML 3ML VIAL SQ SCH ×4 (09:25→21:23)
[2021-04-29] MEDS: HYDROMORPHONE 0.2MG/ML-SOD CHL 30ML PCA SYRINGE IV PRN ×2 (10:55→23:25)
[2021-04-29 11:26] VITALS: BP 109/61
[2021-04-29 15:26] VITALS: BP 107/46
[2021-04-29 20:00] VITALS: BP 109/65
[2021-04-29] MEDS: ATORVASTATIN 10 MG TAB PO SCH (21:23)
[2021-04-30] VITALS (8 sets, daily range): BP systolic 108–125; BP diastolic 56–73
[2021-04-30] MEDS: SODIUM CHLORIDE 0.9% 1000ML 1,000 ML IV SCH ×2 (05:51→20:30)
[2021-04-30] MEDS: INSULIN LISPRO 100 UNIT/1 ML 3ML VIAL SQ SCH ×4 (07:30→20:30)
[2021-04-30] MEDS: POLYETHYLENE GLYCOL 3350 17 GM PACK PO SCH ×2 (09:36→16:22)
[2021-04-30] MEDS: FUROSEMIDE 40 MG TAB PO SCH (09:36)
[2021-04-30] MEDS: DOCUSATE SODIUM 100 MG CAP PO SCH ×2 (09:36→16:22)
[2021-04-30] MEDS: AMLODIPINE BESYLATE 10 MG TAB PO SCH (09:37)
[2021-04-30] MEDS: IRBESARTAN 150 MG TAB PO SCH (09:37)
[2021-04-30] MEDS: METOPROLOL SUCCINATE 50 MG TAB XL PO SCH (09:37)
[2021-04-30] MEDS: ATORVASTATIN 10 MG TAB PO SCH (20:30)
[2021-05-01] VITALS (8 sets, daily range): BP systolic 106–142; BP diastolic 45–83
[2021-05-01] MEDS: HYDROMORPHONE 0.2MG/ML-SOD CHL 30ML PCA SYRINGE IV PRN ×2 (01:07→17:02)
[2021-05-01] MEDS: INSULIN LISPRO 100 UNIT/1 ML 3ML VIAL SQ SCH ×4 (07:30→21:10)
[2021-05-01] MEDS: AMLODIPINE BESYLATE 10 MG TAB PO SCH (08:39)
[2021-05-01] MEDS: FUROSEMIDE 40 MG TAB PO SCH (08:39)
[2021-05-01] MEDS: METOPROLOL SUCCINATE 50 MG TAB XL PO SCH (08:39)
[2021-05-01] MEDS: SODIUM CHLORIDE 0.9% 1000ML 1,000 ML IV SCH (08:39)
[2021-05-01] MEDS: POLYETHYLENE GLYCOL 3350 17 GM PACK PO SCH ×2 (08:39→16:50)
[2021-05-01] MEDS: DOCUSATE SODIUM 100 MG CAP PO SCH ×2 (08:39→16:50)
[2021-05-01] MEDS: IRBESARTAN 150 MG TAB PO SCH (08:39)
[2021-05-01] MEDS ORDERED: HYDROMORPHONE 0.2MG/ML-SOD CHL 30ML PCA SYRINGE IV PRN (19:30)
[2021-05-01] MEDS ORDERED: MAGNESIUM HYDROXIDE 30 ML UDC PO ONE (20:00)
[2021-05-01] MEDS: ATORVASTATIN 10 MG TAB PO SCH (20:51)
[2021-05-02] VITALS (8 sets, daily range): BP systolic 125–153; BP diastolic 66–73
[2021-05-02 06:32] LABS: BASOPHILS % 0.3 % (0.0-1.0); EOSINOPHILS # (AUTO) 0.8 (0.0-0.4); EOSINOPHILS % 8.5 % (0.0-6.0); HEMATOCRIT 28.7 % (38.2-49.6); HEMOGLOBIN 9.1 g/dL (14.0-18.0); LYMPHOCYTES # (AUTO) 1.6 (1.0-3.2); LYMPHOCYTES % 16.7 % (18.0-39.1); MEAN CORPUSCULAR HEMOGLOBIN 29.2 pg (28-32); MEAN CORPUSCULAR HGB CONC 31.7 g/dL (31-35); MONOCYTES # (AUTO) 0.7 (0.2-0.8); MONOCYTES % 7.2 % (4.4-11.3); NEUTROPHILS # (AUTO) 6.3 (2.1-6.9); NEUTROPHILS % 66.8 % (38.7-80.0); PLATELET COUNT 230 x10e3/uL (140-360); RED BLOOD COUNT 3.12 x10e6/uL (4.3-5.7); RED CELL DISTRIBUTION WIDTH 14.5 % (11.7-14.4)
[2021-05-02 07:16] LABS: ANION GAP 6.7 mmol/L (8-16); CALCIUM 8.8 mg/dL (8.4-10.2); CREATININE, SERUM 0.76 mg/dL (0.72-1.25); POTASSIUM 3.7 mmol/L (3.5-5.1)
[2021-05-02] MEDS: POLYETHYLENE GLYCOL 3350 17 GM PACK PO SCH ×2 (08:15→16:41)
[2021-05-02] MEDS: DOCUSATE SODIUM 100 MG CAP PO SCH ×2 (08:15→16:41)
[2021-05-02] MEDS: FUROSEMIDE 40 MG TAB PO SCH (08:15)
[2021-05-02] MEDS: METOPROLOL SUCCINATE 50 MG TAB XL PO SCH (08:20)
[2021-05-02] MEDS: IRBESARTAN 150 MG TAB PO SCH (08:20)
[2021-05-02] MEDS: AMLODIPINE BESYLATE 10 MG TAB PO SCH (08:20)
[2021-05-02] MEDS: INSULIN LISPRO 100 UNIT/1 ML 3ML VIAL SQ SCH ×4 (08:22→20:45)
[2021-05-02] MEDS ORDERED: PNEUMOCOCCAL VACCINE POLYVALENT 23 MCG/0.5 ML VIAL IM ONE (13:00)
[2021-05-02] MEDS: FAMOTIDINE 20 MG TAB PO SCH (16:41)
[2021-05-02] MEDS: ATORVASTATIN 10 MG TAB PO SCH (20:40)
[2021-05-03] VITALS (7 sets, daily range): BP systolic 144–158; BP diastolic 55–79
[2021-05-03] MEDS: FAMOTIDINE 20 MG TAB PO SCH ×2 (07:30→16:30)
[2021-05-03] MEDS: INSULIN LISPRO 100 UNIT/1 ML 3ML VIAL SQ SCH ×4 (07:30→21:39)
[2021-05-03] MEDS: FUROSEMIDE 40 MG TAB PO SCH (09:00)
[2021-05-03] MEDS: IRBESARTAN 150 MG TAB PO SCH (09:00)
[2021-05-03] MEDS: DOCUSATE SODIUM 100 MG CAP PO SCH ×2 (09:00→16:33)
[2021-05-03] MEDS: POLYETHYLENE GLYCOL 3350 17 GM PACK PO SCH ×2 (09:00→16:34)
[2021-05-03] MEDS: METOPROLOL SUCCINATE 50 MG TAB XL PO SCH (09:00)
[2021-05-03] MEDS: AMLODIPINE BESYLATE 10 MG TAB PO SCH (09:00)
[2021-05-03] MEDS: ATORVASTATIN 10 MG TAB PO SCH (21:38)
[2021-05-04 00:22] VITALS: BP 144/55
[2021-05-04 06:43] VITALS: BP 154/56
[2021-05-04] MEDS: FAMOTIDINE 20 MG TAB PO SCH ×2 (07:30→16:30)
[2021-05-04] MEDS: INSULIN LISPRO 100 UNIT/1 ML 3ML VIAL SQ SCH ×4 (07:30→21:00)
[2021-05-04 07:52] VITALS: BP 148/73
[2021-05-04] MEDS: IRBESARTAN 150 MG TAB PO SCH (09:00)
[2021-05-04] MEDS: AMLODIPINE BESYLATE 10 MG TAB PO SCH (09:00)
[2021-05-04] MEDS: FUROSEMIDE 40 MG TAB PO SCH (09:00)
[2021-05-04] MEDS: POLYETHYLENE GLYCOL 3350 17 GM PACK PO SCH ×2 (09:00→16:39)
[2021-05-04] MEDS: METOPROLOL SUCCINATE 50 MG TAB XL PO SCH (09:00)
[2021-05-04] MEDS: CLOPIDOGREL BISULFATE 75 MG TAB PO SCH (09:00)
[2021-05-04] MEDS: DOCUSATE SODIUM 100 MG CAP PO SCH ×2 (09:00→16:38)
[2021-05-04 11:54] VITALS: BP 155/73
[2021-05-04 15:52] VITALS: BP 131/60
[2021-05-04 20:00] VITALS: BP 145/67
[2021-05-04] MEDS: ATORVASTATIN 10 MG TAB PO SCH (21:00)
[2021-05-04] MEDS: HEPARIN SOD (PORCINE) 5,000 UNIT/ML VIAL SC SCH (21:00)
[2021-05-05] VITALS (7 sets, daily range): BP systolic 133–145; BP diastolic 58–77
[2021-05-05 04:42] LABS: BASOPHILS % 0.4 % (0.0-1.0); EOSINOPHILS # (AUTO) 0.7 (0.0-0.4); EOSINOPHILS % 7.2 % (0.0-6.0); HEMATOCRIT 31.1 % (38.2-49.6); HEMOGLOBIN 9.8 g/dL (14.0-18.0); LYMPHOCYTES # (AUTO) 2.1 (1.0-3.2); LYMPHOCYTES % 22.2 % (18.0-39.1); MEAN CORPUSCULAR HEMOGLOBIN 29.3 pg (28-32); MEAN CORPUSCULAR HGB CONC 31.5 g/dL (31-35); MEAN CORPUSCULAR VOLUME 92.8 fL (81-99); MONOCYTES # (AUTO) 0.7 (0.2-0.8); MONOCYTES % 7.8 % (4.4-11.3); NEUTROPHILS # (AUTO) 5.8 (2.1-6.9); NEUTROPHILS % 61.9 % (38.7-80.0); PLATELET COUNT 221 x10e3/uL (140-360); RED BLOOD COUNT 3.35 x10e6/uL (4.3-5.7); RED CELL DISTRIBUTION WIDTH 14.6 % (11.7-14.4)
[2021-05-05 05:08] LABS: ANION GAP 6.8 mmol/L (8-16); CALCIUM 9.2 mg/dL (8.4-10.2); CREATININE, SERUM 0.8 mg/dL (0.72-1.25); POTASSIUM 3.8 mmol/L (3.5-5.1)
[2021-05-05] MEDS: FAMOTIDINE 20 MG TAB PO SCH ×2 (08:59→16:49)
[2021-05-05] MEDS: FUROSEMIDE 40 MG TAB PO SCH (09:01)
[2021-05-05] MEDS: IRBESARTAN 150 MG TAB PO SCH (09:01)
[2021-05-05] MEDS: DOCUSATE SODIUM 100 MG CAP PO SCH (09:01)
[2021-05-05] MEDS: INSULIN LISPRO 100 UNIT/1 ML 3ML VIAL SQ SCH ×3 (09:01→16:51)
[2021-05-05] MEDS: POLYETHYLENE GLYCOL 3350 17 GM PACK PO SCH (09:02)
[2021-05-05] MEDS: CLOPIDOGREL BISULFATE 75 MG TAB PO SCH (09:02)
[2021-05-05] MEDS: AMLODIPINE BESYLATE 10 MG TAB PO SCH (09:02)
[2021-05-05] MEDS: METOPROLOL SUCCINATE 50 MG TAB XL PO SCH (09:03)
[2021-05-05] MEDS: HEPARIN SOD (PORCINE) 5,000 UNIT/ML VIAL SC SCH (09:08)
[2021-05-05] MEDS ORDERED: HYDROCODONE/APAP 7.5MG-325MG 1 EA TAB PO PRN (14:30)
== END 2021-05-05 17:20 | DRG 239 ==
LOC: ER 12:20 → ERHOLD 14:24 → MED/SURG2 18:02
PROVIDERS: ADMIT Internal Medicine; ATTEND Internal Medicine
PROC: B4101ZZ Fluoroscopy of Abdominal Aorta using Low Osmolar Contrast (ICD-10-PCS; 2021-04-24)
PROC: B41G1ZZ Fluoroscopy of Left Lower Extremity Arteries using Low Osmolar Contrast (ICD-10-PCS; 2021-04-24)
PROC: 0Y6J0Z3 Detachment at Left Lower Leg, Low, Open Approach (ICD-10-PCS; principal; 2021-04-28 10:56)
DX: E11.52 Type 2 diabetes mellitus with diabetic peripheral angiopathy with gangrene (principal); N18.6 End stage renal disease; I96 Gangrene, not elsewhere classified; T82.856A Stenosis of peripheral vascular stent, initial encounter; I70.92 Chronic total occlusion of artery of the extremities; I70.262 Atherosclerosis of native arteries of extremities with gangrene, left leg; I12.0 Hypertensive chronic kidney disease with stage 5 chronic kidney disease or end stage renal disease; I70.245 Atherosclerosis of native arteries of left leg with ulceration of other part of foot; E13.69 Other specified diabetes mellitus with other specified complication; E11.42 Type 2 diabetes mellitus with diabetic polyneuropathy; E11.621 Type 2 diabetes mellitus with foot ulcer; I25.10 Atherosclerotic heart disease of native coronary artery without angina pectoris; K59.00 Constipation, unspecified; E11.22 Type 2 diabetes mellitus with diabetic chronic kidney disease; E78.5 Hyperlipidemia, unspecified; D72.829 Elevated white blood cell count, unspecified; L97.524 Non-pressure chronic ulcer of other part of left foot with necrosis of bone; E66.01 Morbid (severe) obesity due to excess calories; Z68.36 Body mass index [BMI] 36.0-36.9, adult; Z79.4 Long term (current) use of insulin; Z89.511 Acquired absence of right leg below knee; Z79.84 Long term (current) use of oral hypoglycemic drugs; Z90.49 Acquired absence of other specified parts of digestive tract; Z95.820 Peripheral vascular angioplasty status with implants and grafts; Z83.3 Family history of diabetes mellitus; Z87.891 Personal history of nicotine dependence; Z99.2 Dependence on renal dialysis; Z20.822 Contact with and (suspected) exposure to COVID-19
CPT/HCPCS: 36415; 75625; 75710; 80048; 80053; 82948; 83036; 83735; 84100; 85025; 87040; 88304; 88307; 88311; 90732; 93926; 96360; 96361; 96367; 96372; 97139; 99152; 99284; C1769; C1894; J0690; J0692; J1100; J1170; J1644; J1650; J2001; J2250; J2270; J2405; J2543; J3010; J3370; J7030; J7050; Q0162; Q9967; U0002

== ENCOUNTER → 2021-06-12 | Day surgery (SDC) | payer OTHER ==
[2021-06-11 11:25] LABS: BASOPHILS # (AUTO) 0.1 (0.0-0.1); BASOPHILS % 0.7 % (0.0-1.0); EOSINOPHILS # (AUTO) 0.2 (0.0-0.4); EOSINOPHILS % 2.7 % (0.0-6.0); HEMATOCRIT 43.2 % (38.2-49.6); HEMOGLOBIN 13.9 g/dL (14.0-18.0); LYMPHOCYTES # (AUTO) 1.6 (1.0-3.2); LYMPHOCYTES % 22.2 % (18.0-39.1); MEAN CORPUSCULAR HEMOGLOBIN 29.3 pg (28-32); MEAN CORPUSCULAR HGB CONC 32.2 g/dL (31-35); MEAN CORPUSCULAR VOLUME 91.1 fL (81-99); MONOCYTES # (AUTO) 0.5 (0.2-0.8); MONOCYTES % 7.6 % (4.4-11.3); NEUTROPHILS # (AUTO) 4.6 (2.1-6.9); NEUTROPHILS % 66.2 % (38.7-80.0); PLATELET COUNT 218 x10e3/uL (140-360); RED BLOOD COUNT 4.74 x10e6/uL (4.3-5.7); RED CELL DISTRIBUTION WIDTH 14.2 % (11.7-14.4)
[2021-06-11 11:47] LABS: ANION GAP 13.7 mmol/L (8-16); CALCIUM 9.1 mg/dL (8.4-10.2); CREATININE, SERUM 0.99 mg/dL (0.72-1.25); POTASSIUM 3.7 mmol/L (3.5-5.1)
[~2021-06-12] MED LIST changes: +FENTANYL CITRATE/PF 100MCG/2 ML INJ ONE; +HYDROGEN PEROXIDE 120 ML BTL ONE; +LIDOCAINE HCL 1% LOCAL INJ 20 ML VIAL ONE; +LIDOCAINE HCL 2% LOCAL INJ 5 ML SDV VIAL INJ ONE; +METFORMIN HCL PO; +MIDAZOLAM HCL 2 MG/2 ML VIAL ONE; +POVIDONE IODINE 0.05% 0.05 % ML PO ONE; +PROPOFOL IV EMULSION 10 MG/ML 20 ML VIAL ONE
[2021-06-12 11:52] VITALS: BP 166/91
== END | disposition home or self-care (01) ==
LOC: OR 07:50
PROVIDERS: ATTEND Surgery
DX: S80.01XA Contusion of right knee, initial encounter (principal); L72.9 Follicular cyst of the skin and subcutaneous tissue, unspecified; Z89.511 Acquired absence of right leg below knee; I25.10 Atherosclerotic heart disease of native coronary artery without angina pectoris; E11.9 Type 2 diabetes mellitus without complications; I10 Essential (primary) hypertension; E78.5 Hyperlipidemia, unspecified; X58.XXXA Exposure to other specified factors, initial encounter; Z01.810 Encounter for preprocedural cardiovascular examination; Z01.812 Encounter for preprocedural laboratory examination; Z20.822 Contact with and (suspected) exposure to COVID-19; Z79.02 Long term (current) use of antithrombotics/antiplatelets; Z79.4 Long term (current) use of insulin; Z79.899 Other long term (current) drug therapy; Z95.5 Presence of coronary angioplasty implant and graft
CPT/HCPCS: 36415; 80048; 82948; 85025; 93005; J0690; J2001; J2250; J3010; U0002